=== PATIENT | female | born 1940 | race Caucasian/White ===

== ENCOUNTER 2019-12-07 10:07 | Emergency (ER) | payer MEDICARE, SELFPAY ==
[2019-12-07 10:09] VITALS: BP 140/73; PULSE 76; RESP 18; TEMP 36.3; O2SAT 100
--- NOTE | 2019-12-07 10:20 | ED.GENADULT ---
HPI - General Adult General Chief complaint: Wound/Laceration Stated complaint: SPLINTER Time Seen by Provider: 12/07/19 10:20 Source: patient and RN notes reviewed Mode of arrival: ambulatory Limitations: no limitations History of Present Illness HPI narrative: This is a 79 years old female presented office for evaluation of possible foreign body in her left ankle.She was working on her yard 2 days ago and believed to have splinter in her ankle. She was able to remove 1 of them however she believes this still 1 more in there. She complain of pain, worse at nighttime that she has to take Tylenol for pain. TD is up to date. She is not diabetic. Related Data Allergies Allergy/AdvReac Type Severity Reaction Status Date / Time No Known Allergies Allergy Verified 12/07/19 10:19 Review of Systems Review of Systems: Narrative: CONSTITUTIONAL: Denies fever or feeling ill CARDIOVASCULAR: Denies edema. RESPIRATORY: Denies cough GASTROINTESTINAL: Denies nausea SKIN: Reports possible splinter in her left ankle MUSCULOSKELETAL: Denies ankle/feet pain NEUROLOGIC: Denies lnumbness. [facility] Past Medical History Medical History Age-related osteoporosis without current pathological fracture Hypothyroidism Postmenopausal Family History Family History Sibling Patient's sister is in good health Family history of pancreatic cancer Social History Social History Smoking status: Never smoker Alcohol intake: never Comments At time of signature, I agree with nursing past medical, surgical, social and family history. There is no relevant family history pertinent to the presenting complaint. Exam Narrative: Exam Narrative: GENERAL: This is a well-nourished, well-developed patient, in no apparent distress. NEURO: awake, alert, and oriented to person, place and time. There were no obvious focal neurologic abnormalities. Steady gait EXTREMITIES: left media aspect noted two localize lesion with erythema and tender to palpation. [place] Coma Scale Eye Opening: Spontaneous 4 [place] Coma Scale Motor: Obeys Commands 6 [place] Coma Scale Verbal: Oriented 5 Course Vital Signs Vital signs: Vital Signs Temperature 97.4 F L 12/07/19 10:09 Pulse Rate 76 12/07/19 10:09 Respiratory Rate 18 12/07/19 10:09 Blood Pressure 140/73 12/07/19 10:09 Pulse Oximetry 100 12/07/19 10:09 Temperature 97.4 F L 12/07/19 10:09 Pulse Rate 76 12/07/19 10:09 Respiratory Rate 18 12/07/19 10:09 Blood Pressure 140/73 12/07/19 10:09 Pulse Oximetry 100 12/07/19 10:09 Procedures Foreign Body Removal Foreign Body #1: Foreign Body Removal Date: 12/07/19 Time Out Performed: no Site: left and lower extremity (near media aspect of ankle) Description of foreign body: other (wood/plant splinter) Sedation/Analgesia: none Technique: removal with forceps and incision made to facilitate removal Confirmed by:: patient report and palpation Complications: none Post-procedure exam: awake, alert Neurovascular: normal distal pulse, normal capillary fill and no signs of compartment syndrome Foreign Body Removal Narrative: Wound is cleaned with sterile water then Betadine. Then,.5ml of lidocaine injected, small incision is made with 11blade, two splinters removed successfully. Patient tolerate procedure well. I dressed the wound with topical neosporine and co band. Wound care instruction provide. Medical Decision Making MDM Narrative Medical decision making narrative: Patient is Urgent/Emergent. BP elevated due to current condition w/o HTN in PMH (Measure Met). Differential Diagnosis Differential Diagnosis: wound repair Vital Signs Vital Signs: Vital Signs Temperature 97.4 F L 12/07/19 10:09 Pulse Rate
== END 2019-12-07 11:04 | disposition home or self-care (01) ==
PROVIDERS: Emergency Provider Nurse Practitioner; PCP Internal Medicine
DX: S91.042A Puncture wound with foreign body, left ankle, initial encounter (principal); W45.8XXA Other foreign body or object entering through skin, initial encounter; E03.9 Hypothyroidism, unspecified
CPT/HCPCS: 10120; 99213; G0463

== ENCOUNTER 2019-12-17 12:15 | Emergency (ER) | payer MEDICARE, SELFPAY ==
[2019-12-17 12:16] VITALS: BP 131/79; PULSE 97; RESP 20; TEMP 36.6; O2SAT 100
--- NOTE | 2019-12-17 12:42 | ED.WOUNDLAC ---
HPI - Wound/Laceration General Chief Complaint: Wound/Laceration Stated Complaint: SPLINTER IN LEG Time Seen by Provider: 12/17/19 12:30 Source: patient, RN notes reviewed and old records reviewed Mode of arrival: ambulatory Limitations: no limitations History of Present Illness HPI narrative: Patient presents today complaining of worsening redness and pain to her left medial ankle. On 12/07/2019, patient presented to [facility] complaining of several large splinters in her ankle. Several splinters were removed at that time and patient was placed on mupirocin ointment. Symptoms were not improving, and patient had a telemedicine visit with her PCP on 12/14/2019. She was then placed on Bactrim. Reports symptoms have been worsening over the last 4 days, and not improving after antibiotics have been started. States that she feels scraping inside of her skin when she walks and believes she may have other splinters under the surface of her skin. She has tried no other [id number] interventions prior to arrival. Related Data Allergies Allergy/AdvReac Type Severity Reaction Status Date / Time No Known Allergies Allergy Verified 12/17/19 12:25 Review of Systems Review of Systems: Narrative: CONSTITUTIONAL: Denies body aches, fever, chills, or sweats. EYES: Denies visual changes, redness, or discharge. ENT: Denies rhinorrhea, congestion, sore throat, or otalgia. CARDIOVASCULAR: Denies chest pain, palpitations, or edema. RESPIRATORY: Denies cough or dyspnea. GASTROINTESTINAL: Denies abdominal pain, nausea, vomiting, or diarrhea. GENITOURINARY: Denies dysuria or hematuria. SKIN: Denies rash, itching. + Wounds and redness to left ankle MUSCULOSKELETAL: Denies back pain, joint pain, or myalgia. NEUROLOGIC: Denies headache, numbness, tingling, or weakness. PSYCH: Denies depression or anxiety. [facility] Past Medical History Medical History (Updated 12/17/19 @ 12:44 by Macey Garcia, [employer], ) Age-related osteoporosis without current pathological fracture Hypothyroidism Postmenopausal Surgical History Surgical History (Updated 12/14/19 @ 10:39 by Lait Serra, [facility]) History of hysterectomy 2002 History of partial thyroidectomy Family History Family History (Updated 12/14/19 @ 10:39 by Liat Serra CMA) Sibling Patient's sister is in good health Family history of pancreatic cancer Father Heart disease Mother Heart disease Social History Social History Smoking status: Never smoker Alcohol intake: never Comments At time of signature, I have reviewed and agree with nursing past medical, surgical, social and family history unless otherwise noted. Please see nursing chart for further information. There is no relevant family history pertinent to the presenting complaint Exam Narrative: Exam Narrative: GENERAL: Well-appearing, well-nourished, and in no acute distress. HEAD: Normocephalic, atraumatic. EYES: EOMI. No redness or drainage. Conjunctivae normal. ENT: Mucous membranes pink and moist. NECK: Normal AROM. CHEST: No respiratory distress. EXTREMITIES: Normal range of motion. No edema. SKIN: Warm, dry, no rash. Capillary refill normal. Normal skin turgor. 2 scabbed severely erythematous lesions to the medial left ankle. The more distal lesion is raised and fluctuant, and measures approximately 0.5 cm round. Tender to palpation. NEURO: No focal deficits. Alert and oriented x3. Gait steady. PSYCH: Normal affect. No signs of depression or anxiety. Course Vital Signs Vital signs: Vital Signs Temperature 97.9 F 12/17/19 12:16 Pulse Rate 97 12/17/19 12:16 Respiratory Rate 12/17/19 12:16 Blood Pressure 131/79 12/17/19 12:16 Pulse Oximetry 100 12/17/19 12:16 Temperature 97.9 F 12/17/19 12:16 Pulse Rate 97 12/17/19 12:16 Respiratory Rate 12/17/19 12:16 Blood Pressure 131/79 12/17/19 12:16 Pulse O
== END 2019-12-17 12:48 | disposition home or self-care (01) ==
PROVIDERS: Emergency Provider Nurse Practitioner; PCP Internal Medicine
DX: S81.842 Puncture wound with foreign body, left lower leg (principal); L03.116 Cellulitis of left lower limb; W45.8XXD Other foreign body or object entering through skin, subsequent encounter; M81.0 Age-related osteoporosis without current pathological fracture; E03.9 Hypothyroidism, unspecified
CPT/HCPCS: 99212; G0463

== ENCOUNTER 2024-12-14 10:22 | Outpatient (CLI) | payer MEDICARE, SELFPAY ==
--- NOTE | ~2024-12-14 | DEXA_ITS ---
Bone Density Report Name: HAROON JUAREZ Age: 84 Sex: Female Ethnicity: White Date of : 1940 Indication: postmenopausal; screening for osteoporosis; height loss; hysterectomy; Referring Provider: UNKNOWN, UNKNOWN Study: Bone densitometry was performed. Exam Date: December 14, 2024 Accession number: [id number] Bone Density: Region BMD T-score Z-score Classification AP Spine(L1-L4) 1.077 0.3 3.1 Normal Femoral Neck (Left) 0.511 -3.0 -0.6 Osteoporosis Total Hip (Left) 0.580 -3.0 -0.7 Osteoporosis Femoral Neck (Right) 0.578 -2.4 0.0 Osteopenia Total Hip (Right) 0.620 -2.6 -0.4 Osteoporosis Total Hip Mean 0.600 -2.8 -0.6 Osteoporosis World Health Organization criteria for BMD impression classify patients as: Normal (T-score at or above -1.0), Osteopenia (T-score between -1.0 and -2.5), or Osteoporosis (T-score at or below -2.5). 10-year Fracture Risk: FRAX not reported because: Some T-score for Spine Total or Hip Total or Femoral Neck at or below -2.5 Clinical Information Provided by Patient: Has used the following medications: Vitamin D, Calcium Has the following medical conditions: Hysterectomy Patient maximum height was 67.0 Menopause Age: 50 Drinks caffeinated beverages Onset of menses at age 12 Number of children 3 Impression: The patient has osteoporosis, based on the Left Total Hip T-score. Discussion: INCREASED RISK OF FRACTURE. BONE DENSITY IS UNDESIRABLY LOW AT ONE OR MORE SKELETAL SITES, CONSISTENT WITH POSTMENOPAUSAL OSTEOPOROSIS. This patient's lowest T-score meets the World Health Organization's (WHO) criteria for osteoporosis at one or more sites (T-score -2.5 or below). In untreated patients, the risk of osteoporotic fracture increases approximately two-fold for each 1.0 SD decrease in T-score. Low bone density is not the only risk factor for fracture; also consider factors such as patient's age, frailty or poor health, risk of falling, risk of injury, previous osteoporotic fracture, family history of osteoporosis, cigarette smoking, low body weight, etc. Not everyone with low bone mineral density has osteoporosis; osteomalacia and other metabolic bone disorders should also be considered. Patients who have osteoporosis should be evaluated for specific diseases and conditions (secondary causes) that may cause or contribute to bone loss. The [place] Association of Clinical Endocrinologists (AACE) and National Osteoporosis Foundation (NOF) recommend pharmacologic intervention for all postmenopausal women whose T-score is in this range. The patient should follow a healthful lifestyle (good nutrition with adequate calcium and vitamin D, and appropriate weight-bearing exercise). Follow-Up: Consider a repeat BMD and Vertebral Fracture Assessment (VFA) exam in 2 years or sooner if medically necessary, to reassess this patient's status. Reported by: PRIMO on 12/14/2024 11:03:00 AM. Reviewed, dictated and finalized at location A. ANGELINA
--- OUTSIDE RECORDS SUMMARY | 2024-12-14 12:03 | XMS_ITS | Patient Health Record ---
Author Organization [facility] Address [address] [place] [address] Support Name Relationship Address Phone Cristal Rodriguez Guarantor Unknown [phone] Allergies No Known Allergies Reason For Referral No Information Plan Of Treatment No Information Insurance Providers Payer Name Payer Address Payer Phone Subscriber Number Group Number Insured Name Patient Relationship to Insured Coverage Start Date Coverage End Date [employer] [place] [address] [place] [address] [id number] Cristal Rodriguez Self - patient is the insured 1 Karla [address] ISAURA Nolen [id number] Cristal Rodriguez Self - patient is the insured 1
--- OUTSIDE RECORDS SUMMARY | 2024-12-14 12:03 | XMS_ITS | CONTINUITY OF CARE DOCUMENT ---
Author Name brady abreu Address Unknown Organization [facility] Office Address [address] [place] [address] [address] [place] [address] Phone [phone] Care Team Providers Care Maternity Floor Supervisor Name Role Phone Angel Howard MD Unavailable [phone] Angel Howard MD Unavailable [phone] PROBLEMS Condition Status Date Provider Notes Cardiovascular screening active Christina Walker INSURANCE PROVIDERS Payer name Policy type / Coverage type [place] red green party ID [employer] MEDICARE VALUE ADVANTRA PPO [employer] [id number] TREATMENT PLAN Date Name CT, Coronary Calcium Score HISTORY OF PROCEDURES Procedure Date Procedure Name Provider Procedure Notes S tatus CT- Coronary CA score Angel Howard MD completed
--- OUTSIDE RECORDS SUMMARY | 2024-12-14 12:03 | XMS_ITS ---
Author Organization [facility] Address [address] [place] [address] Care Team Providers Care Global Head Advertiser [employer] Name Role Phone zzzzMigration, zzzzProvider Unavailable Unav ailable Allergies No Known Allergies REASON FOR VISIT EMR-Ulices Encounters Encounter Location Date Provider Diagnosis [facility] [address] [place] [address] 06/28/2023 zzzzProvider zzzzMigration Plan Of Treatment No Information Progress Notes * Cristal RODRIGUEZ MDOB: (84 yo F)Acc No.[id number]:06/28/2023 Patient: Israel MCLAIN Cristal Fernando :1940 A ge:82 Y S ex:Female Address:[address] [place] [address] Subjective: * Chief Complaints: * E MR-Ulices * Medical History: * Surgical History: * Hospitalization/Major Diagno stic Procedure: * Social History: M igrated Social History: M igrated Social History: Substance Use :: Tobacco :: Never. * Medications: * Allergies: N .K.D.A.no[Allergies Verified] Objective: * Vitals: * Physical Examination: Assessment: Plan: * Treatment: * Procedure Codes: * true * Date: Generated for Printi ng/Faxing/eTransmitting on: 0 12/14/2024 12:02 PM CDT
--- OUTSIDE RECORDS SUMMARY | 2024-12-14 12:03 | XMS_ITS ---
Author Organization [facility] Address [address] [place] [address] Care Team Providers Care Manager Camp Name Role Phone zzzzMigration, zzzzProvider Unavailable Unav ailable REASON FOR VISIT EMR-Ulices Encounters Encounter Location Date Provider Diagnosis [facility] [address] [facility] [facility] [address] [place] [address] 06/27/2023 zzzzProvider zzzzMigration Plan Of Treatment No Information Progress Notes * Cristal RODRIGUEZ MDOB: (84 yo F)Acc No.[id number]:06/27/2023 Patient: Israel MCLAIN Cristal King :1940 A ge:82 Y S ex:Female Address:[address] [facility] [address] Subjective: * Chief Complaints: * E MR-Ulices * Medical History: * Surgical History: * Hospitalization/Major Diagno stic Procedure: * Medications: Objective: * Vitals: * Physical Examination: Assessment: Plan: * Treatment: * Procedure Codes: * true * Date: Generated for Printi ng/Faxing/eTransmitting on: 0 12/14/2024 12:02 PM CDT
== END 2024-12-14 10:23 | disposition home or self-care (01) ==
LOC: ANHIMG 10:29
DX: M81.0 Age-related osteoporosis without current pathological fracture (principal); M85.852 Other specified disorders of bone density and structure, left thigh
CPT/HCPCS: 77080